=== PATIENT | male | born 1975 | race African-American/Black ===

== ENCOUNTER 2023-01-28 20:49 | Emergency (ER) | payer OTHER, SELFPAY ==
--- NOTE | ~2023-01-28 | CT_ITS ---
EXAMINATION: CT abdomen pelvis wo con DATE: 01/29/2023 00:31 INDICATION: Hematuria TECHNIQUE: Computed tomography (CT) of the abdomen and pelvis was performed without intravenous contr ast. Automated exposure control and iterative reconstruction technique were employed. Exam dose: 373 .38 mGy-cm total exam DLP. COMPARISON: None. FINDINGS: The lung bases are clear. Normal heart size. No pericardial or pleural effusion. The liver, gallbladder, bile ducts, spleen, pancreas, pancreatic duct, and adrenal glands and kidneys are unremarkable. No urinary tract calculus or hydroureteronephrosis is detected. The urinary bladde r and prostate gland are unremarkable. Normal caliber of the abdominal aorta. Atherosclerotic calcification of the common iliac arteries. No intraperitoneal or retroperitoneal or pelvic mass lesion or adenopathy or ascites. No evidence of appendicitis. Diverticulosis of the colon; no CT evidence of diverticulitis. No bowel obstruction or free air. Small fat containing umbilical hernia. No suspicious osteolytic or osteosclerotic abnormality is detected. IMPRESSION: Diverticulosis of the colon; no evidence of diverticulitis No urinary tract calculus or hydroureteronephrosis Reviewed, dictated and finalized at [facility]. Reviewed, dictated and finalized at [facility].
[2023-01-28 20:58] VITALS: BP 136/114; PULSE 82; RESP 18; TEMP 36.2; O2SAT 100
[2023-01-28 22:59] VITALS: BP 117/69; PULSE 59; RESP 15; TEMP 36.7; O2SAT 100
--- NOTE | 2023-01-28 23:29 | ED.GENADULT ---
HPI - General Adult General Chief complaint: Urogenital-Male Stated complaint: bleeding during urination Time Seen by Provider: 01/28/23 22:48 Source: patient Mode of arrival: ambulatory Limitations: no limitations History of Present Illness HPI narrative: This is a 47-year-old male with chief complaint of hematuria ongoing for the past 2 to 3 weeks. Patient reports intermittent episodes of initial pressure when trying to urinate. He states that when he begins to urinate and there is some blood-tinged urine that comes out. Denies roxanna hematuria. Denies any pain or dysuria. Denies flank pain, abdominal pain, fevers, chills, discharge, concern for STDs, testicular pain or swelling, frequency. States he has been smoking Black and milds for the past 15 years but no cigarettes. Related Data Allergies Allergy/AdvReac Type Severity Reaction Status Date / Time No Known Allergies Allergy Verified 01/28/23 20:51 Review of Systems Review of Systems: CONSTITUTIONAL: Denies fever, chills, or sweats. EYES: Denies visual changes, redness, or discharge. ENT: Denies rhinorrhea, congestion, sore throat, or otalgia. CARDIOVASCULAR: Denies chest pain, palpitations, or edema. RESPIRATORY: Denies cough or dyspnea. GASTROINTESTINAL: Denies abdominal pain, nausea, vomiting, or diarrhea. GENITOURINARY: See HPI SKIN: Denies rash or itching. MUSCULOSKELETAL: Denies back pain, joint pain, or myalgia. NEUROLOGIC: Denies headache, numbness, dizziness, or weakness. PSYCHIATRIC: Denies anxiety or depression. Exam Narrative: GENERAL: Well-appearing, well-nourished, and in no acute distress. HEAD: Normocephalic, atraumatic. EYES: PERRLA and EOMI. ENT: Nares clear, no rhinorrhea or epistaxis. Mucous membranes moist. Oropharynx without tonsillar hypertrophy exudate or other lesions. NECK: Supple. No adenopathy or masses. CHEST: No respiratory distress. Clear to auscultation. No wheezes rales or rhonchi HEART: Regular rate and rhythm. No murmur heard. Normal peripheral pulses. ABDOMEN: Negative flank tenderness bilaterally. Soft, nontender, nondistended, normal active bowel sounds. MSK: Normal range of motion. No edema. SKIN: Warm, dry, no rash. NEURO: Alert and oriented x3. No focal deficits. PSYCH: Normal mood and affect. Course Vital Signs Vital signs: Vital Signs Temperature 97.1 F L 01/28/23 20:58 Pulse Rate 82 01/28/23 20:58 Respiratory Rate 18 01/28/23 20:58 Blood Pressure 136/114 H 01/28/23 20:58 Pulse Oximetry 100 01/28/23 20:58 Oxygen Delivery Room Air 01/28/23 20:58 Temperature 98.0 F 01/28/23 22:59 Pulse Rate 59 L 01/28/23 22:59 Respiratory Rate 15 01/28/23 22:59 Blood Pressure 117/69 01/28/23 22:59 Pulse Oximetry 100 01/28/23 22:59 Oxygen Delivery Room Air 01/28/23 20:58 Medical Decision Making MDM Narrative Medical decision making narrative: This is a 47-year-old male who presents to the ED with chief complaint of intermittent hematuria for the last 2 to 3 weeks. Vitals are normal. Exam is unrevealing. Lab work is largely unremarkable. Urine shows 1+ bilirubin and trace ketones. No blood seen on urinalysis. Pt will be handed off the Dr. Silva at the time of shift change pending CT scan results. Plan for discharge home. Referral to a urologist given for any continued hematuria that he has. He will be discharged in stable condition. Return precautions given and supportive measure discussed. Patient is understanding and agreeable to plan for discharge and follow-up with the specialist. Vital Signs Vital Signs: Vital Signs Temperature 97.1 F L 01/28/23 20:58 Pulse Rate 82 01/28/23 20:58 Respiratory Rate 18 01/28/23 20:58 Blood Pressure 136/114 H 01/28/23 20:58 Pulse Oximetry 100 01/28/23 20:58 Oxygen Delivery Room Air 01/28/23 20:58 Temperature 98.0 F 01/28/23 22:59 Pulse Rate 59 L 01/28/23 22:59 Respiratory Rate 15 01/28/23 22
[2023-01-28 23:42] LABS: Appearance Urine Clear (Clear); Bacteria Urine None Seen /hpf; Bilirubin Urine 1+ (Negative); Blood Urine Negative (Negative); Color Urine Dark Yellow (Yellow); Glucose Urine UA Negative (Negative); Ketones Urine Trace mg/dL (Negative); Leukocyte Esterase Ur Negative LEU/UL (Negative); Need Manual Microscopic Reviewed; Nitrate Urine Negative (Negative); Protein Urine Trace mg/dL (Negative); RBC Urine 0-2 /hpf (0-2); Specific Grav Ur 1.033 (1.001-1.035); Squamous Epithelial Cell Urine None seen /hpf (Few); WBC Urine 0-5 /hpf; pH Urine 5.5 (5.0-9.0)
[2023-01-28 23:44] LABS: Add Urine Microscopic? YES
[2023-01-28 23:54] LABS: Basophils Absolute Auto 0.1 K/mm3 (0.0-0.1); Basophils Percent Auto 0.7 % (0.2-1.2); Eosinophils Absolute Auto 0.3 K/mm3 (0-0.3); Eosinophils Percent Auto 3.8 % (0-4.4); Hematocrit 41.3 % (42.0-52.0); Hemoglobin 14.1 g/dL (14.0-18.0); Immature Granulocyte Absolute 0.01 K/mm3 (0.00-0.031); Immature Granulocyte Percent A 0.1 % (0-0.5); Lymphocytes Absolute Auto 2.82 K/mm3 (0.9-3.2); Lymphocytes Percent Auto 40.1 % (18.3-44.2); Mean Corpuscular HGB Conc 34.1 g/dl (32-36); Mean Corpuscular Hemoglobin 32.6 pg (26-34); Mean Corpuscular Volume 95.4 fl (80-100); Mean Platelet Volume 9.5 fl (7.4-10.4); Monocytes Absolute Auto 0.7 K/mm3 (0.1-0.6); Monocytes Percent Auto 10.5 % (2.6-8.5); Neutrophils Absolute Auto 3.2 K/mm3 (1.3-6.7); Neutrophils Percent Auto 44.8 % (45.5-73.1); Platelet Count Result 255 k/mm3 (150-375); Red Blood Count 4.33 M/mm3 (4.6-6.20); Red Cell Distribution Width 14.3 % (11.5-14.5)
[2023-01-29 00:05] LABS: Anion Gap 2 mmol/L (8-16); Blood Urea Nitrogen 13 mg/dL (9-20); Calcium 8.4 mg/dL (8.4-10.2); Carbon Dioxide 30 mmol/L (22-30); Chloride 107 mmol/L (98-107); Estimated CRCL calculation 85 ml/min; Estimated Glomerular Filt Rate > 60; Glucose 112 mg/dL (65-110); Potassium 3.5 mmol/L (3.4-5.0); Sodium 139 mmol/L (137-145)
[2023-01-29 00:30] LABS: Alanine Aminotransferase 29 U/L (6-50); Albumin Level 3.9 g/dL (3.5-5.1); Alkaline Phosphatase 59 U/L (38-126); Aspartate Amino Transferase 39 U/L (17-59); Bilirubin,Total 0.5 mg/dL (0.2-1.3)
[2023-01-29 04:43] VITALS: BP 98/77; PULSE 67; RESP 13; O2SAT 100
== END 2023-01-29 05:05 | disposition home or self-care (01) ==
PROVIDERS: Physician Assistant; Emergency Provider Emergency Medicine
DX: R31.9 Hematuria, unspecified (principal)
CPT/HCPCS: 36415; 74176; 80048; 80076; 81001; 85025; 99284